=== PATIENT | male | born 1975 | race African-American/Black ===

== ENCOUNTER → 2016-11-12 | Outpatient (CLI) | payer OTHER ==
--- NOTE | 2016-11-13 02:44 | REP ---
Clinical: Pain. Technique: AP, lateral, bilateral oblique and sunrise views of the left knee. Findings: Mild degenerative changes include increased sclerosis to the medial tibial surface and associated joint space narrowing as well as subtle increase sclerosis along the posterior patellar surface with marginal spurring and patellofemoral joint space narrowing. No acute fracture dislocation. No obvious effusion. Impression: Mild arthritic degenerative changes suggested. Signed by Aris Nowak MD 11/13/2016 02:36 A
== END ==
LOC: M RAD 08:53 → EDSTATUS 09:01 → M RAD 09:01
PROVIDERS: ATTEND Surgery
DX: M17.12 Unilateral primary osteoarthritis, left knee (principal); M25.562 Pain in left knee